=== PATIENT | female | born 1970 | race Caucasian/White ===

== ENCOUNTER 2017-11-24 07:37 | Day surgery (SDC) | payer BC ==
[2017-11-14 18:36] LABS: BASOPHILS ABSOLUTE AUTO 0.09 K/mm3 (0.00-0.23); BASOPHILS PERCENT AUTO 1 % (0-2); EOSINOPHILS ABSOLUTE AUTO 0.09 K/mm3 (0.00-0.68); EOSINOPHILS PERCENT AUTO 1 % (0-6); Hematocrit 41.7 % (33.0-51.0); Hemoglobin 13.4 g/dL (11.5-16.0); IMMATURE GRAN ABSOLUTE AUTO 0.01 K/mm3 (0.00-0.10); IMMATURE GRAN PERCENT AUTO 0 % (0-1); LYMPHOCYTES ABSOLUTE AUTO 2.66 K/mm3 (0.84-5.20); LYMPHOCYTES PERCENT AUTO 35 % (21-46); MONOCYTES ABSOLUTE AUTO 0.57 K/mm3 (0.16-1.47); MONOCYTES PERCENT AUTO 8 % (4-13); Mean Corpuscular HGB 29.9 pg (26.0-34.0); Mean Corpuscular HGB Conc 32.1 g/dL (31.5-36.5); Mean Corpuscular Volume 93 fL (80-100); Mean Platelet Volume 10.8 fL (9.1-12.4); NEUTROPHILS ABSOLUTE AUTO 4.22 K/mm3 (1.96-9.15); NEUTROPHILS PERCENT AUTO 55 % (41-73); Platelet Count 256 K/mm3 (150-400); RDW Standard Deviation 41.1 fL (35.1-46.3); Red Blood Cell Count 4.48 M/mm3 (3.80-5.20); White Blood Cell Count 7.64 K/mm3 (4.00-11.30)
[2017-11-14 18:55] LABS: Anion Gap 7 mmol/L (6-16); Blood Urea Nitrogen 9 mg/dL (8-24); Bun/Creatinine Ratio 14.2 (12.0-20.0); CO2, Blood 28 mmol/L (21-32); Calcium, Blood 9.3 mg/dL (8.5-10.1); Chloride, Blood 106 mmol/L (98-108); Creatinine, Blood 0.63 mg/dL (0.40-1.00); Glomerular Filtration Rate >60 (60-); Glucose, Blood 93 mg/dL (70-99); Sodium, Blood 141 mmol/L (136-145)
[~2017-11-24] VITALS: Ht 170.2 cm; Wt 86.1 kg
[~2017-11-24 07:37] MED LIST: CHOL10002; Magnesium500 M1 PO
[2017-11-24] MEDS ORDERED: VITAMIN B122500 MC1 PO (07:59)
[2017-11-24] MEDS ORDERED: ANDROGEL2.5 GM TD (08:00)
== END 2017-11-24 10:22 | disposition home or self-care (01) ==
LOC: ORSCSDS 07:37
PROVIDERS: Orthopaedic Surgery
PROC: 0LN40ZZ Release Left Upper Arm Tendon, Open Approach (ICD-10-PCS; principal; 2017-11-24 08:45)
DX: M77.12 Lateral epicondylitis, left elbow (principal)
CPT/HCPCS: 36415; 80048; 81025; 85025; J0171; J0690; J1100; J2250; J2405; J3010; J7120

== ENCOUNTER → 2018-01-10 | Outpatient (CLI) | payer BC ==
[~2018-01-10] MED LIST changes: +ANDROGEL2.5 GM TD; +VITAMIN B122500 MC1 PO
[2018-01-10 12:42] LABS: BODY FLUID RBC 0.925 (0-0); RBC Count, Synovial Fluid 925000 /mm3 (0-0); WBC Count, Synovial Fluid 1920 /mm3 (0-180)
[2018-01-10 13:31] LABS: Eos, Synovial Fluid 2 % (0-2); Lymphs, Synovial Fluid 46 % (0-15); Monocytes/Macrophages, Synovia 16 % (0-65); Neutrophils, Synovial Fluid 36 % (0-24)
[2018-01-10 13:32] LABS: Appearance, Synovial Fluid Bloody (Clear); Color, Synovial Fluid Red (None-P Yel)
== END | disposition home or self-care (01) ==
LOC: LAB SHORT 11:54 → LAB 11:54
PROVIDERS: Orthopaedic Surgery
DX: M77.12 Lateral epicondylitis, left elbow (principal)
CPT/HCPCS: 87070; 87075; 87205; 89051

== ENCOUNTER → 2020-01-20 | Outpatient (CLI) | payer BC | END | disposition home or self-care (01) | LOC: PLD 13:39 → LAB SHORT 13:39 | DX: D48.5 Neoplasm of uncertain behavior of skin (principal) | CPT/HCPCS: 88305 ==

== ENCOUNTER → 2022-05-08 | Outpatient (CLI) | payer BC ==
[~2022-05-08] MED LIST changes: +BUPR100ER PO; +CLIMARA1 EACH TOP; +DHEA; +DICLOFENAC MIS PO; +ESTRADIOL42.5 GM; +MAGNESIUM GLU27.5 M1 PO; +PROG100 PO
== END | disposition home or self-care (01) ==
LOC: LAB 10:10 → LAB SHORT 10:10
DX: R30.0 Dysuria (principal)
CPT/HCPCS: 87086

== ENCOUNTER → 2022-10-18 | Outpatient (CLI) | payer BC ==
[2022-10-18 16:30] LABS: Hematocrit 41.7 % (33.0-51.0); Hemoglobin 13.5 g/dL (11.5-16.0); Mean Corpuscular HGB 30.2 pg (26.0-34.0); Mean Corpuscular HGB Conc 32.4 g/dL (31.5-36.5); Mean Corpuscular Volume 93 fL (80-100); Mean Platelet Volume 10.9 fL (9.1-12.4); Platelet Count 302 K/mm3 (150-400); RDW Coefficient Variation 12.9 % (11.7-14.2); RDW Standard Deviation 44.1 fL (35.1-46.3); Red Blood Cell Count 4.47 M/mm3 (3.80-5.20); White Blood Cell Count 6.53 K/mm3 (4.00-11.30)
== END | disposition home or self-care (01) ==
LOC: LAB SHORT 08:50 → LAB 08:50
PROVIDERS: Nurse Practitioner Family
DX: E78.2 Mixed hyperlipidemia (principal); E55.9 Vitamin D deficiency, unspecified; E53.8 Deficiency of other specified B group vitamins; E88.81 Metabolic syndrome and other insulin resistance; N95.1 Menopausal and female climacteric states; Z79.890 Hormone replacement therapy
CPT/HCPCS: 83036; 85027

== ENCOUNTER 2024-04-17 22:08 | Emergency (ER) | payer BC ==
[~2024-04-17] VITALS: Ht 170.2 cm; Wt 76.2 kg
[2024-04-17 22:31] VITALS: BP 149/94
[2024-04-18] MEDS ORDERED: Tetracaine HCl/Pf 0.5% Opth Soln 4 ml LEFTEYE SCH (00:05)
[2024-04-18] MEDS ORDERED: Fluorescein Sod 1MG Opth Strips LEFTEYE SCH (00:05)
== END 2024-04-18 01:01 | disposition home or self-care (01) ==
LOC: ER 22:08
DX: H53.452 Other localized visual field defect, left eye (principal); Z79.818 Long term (current) use of other agents affecting estrogen receptors and estrogen levels; Z79.899 Other long term (current) drug therapy; Z88.6 Allergy status to analgesic agent; Z88.5 Allergy status to narcotic agent
CPT/HCPCS: 99283; A9270

== ENCOUNTER → 2024-10-10 | Outpatient (CLI) | payer BC | LOC: LAB SHORT 07:45 → PLD 07:45 → LAB 07:45 | DX: N95.0 Postmenopausal bleeding (principal) | CPT/HCPCS: 88305 ==